=== PATIENT | female | born 1950 | race Caucasian/White ===

== ENCOUNTER → 2016-06-01 | Outpatient (CLI) | payer MEDICARE ==
[~2016-06-01] MED LIST: CALC500T42 PO; CHOL100025 CHEW; MULT1TAB84 PO; OMEG1CHW CHEW
--- NOTE | 2016-06-01 15:25 | RADRPT ---
EXAM DATE/TIME: 06/01/2016 15:07 [place] COMPARISON: No previous studies available for comparison. INDICATIONS : Evaluate for pneumothorax, pneumonia and communicable diseases. Pre-op Uterine surgery MEDICAL HISTORY : None. SURGICAL HISTORY : None. ENCOUNTER: Initial ACUITY: 1 day PAIN SCORE: 0/10 LOCATION: chest FINDINGS: PA and lateral views of the chest demonstrate the lungs to be symmetrically aerated without evidence of mass, infiltrate or effusion. The cardiomediastinal contours are unremarkable. Osseous structure s are intact. CONCLUSION: No acute disease. Jonathan Ignacio MD on June 01, 2016 at 15:23 Board Certified Radiologist. This report was verified electronically.
--- NOTE | 2016-06-02 22:27 | EKG ---
Date Performed: 06/01/2016 Time Performed: 14:53:04 PTAGE: 66 years EKG: Sinus rhythm NORMAL ECG NO PREVIOUS TRACING DOCTOR: Amos Armendariz Interpretating Date/Time 06/02/2016 22:26:50
== END ==
LOC: CPRE 14:28
PROVIDERS: ATTEND Obstetrics & Gynecology Gynecologic Oncology
DX: Z01.810 Encounter for preprocedural cardiovascular examination (principal); Z01.811 Encounter for preprocedural respiratory examination; Z01.812 Encounter for preprocedural laboratory examination; D06.9 Carcinoma in situ of cervix, unspecified
CPT/HCPCS: 71020; 93005

== ENCOUNTER → 2016-06-15 | Day surgery (SDC) | payer MEDICARE ==
[~2016-06-15] VITALS: Ht 160 cm; Wt 47.8 kg
[~2016-06-15] MED LIST changes: +*morphine SULFATE 8 MG/ML PERIprocedure ONLY ONE; +ESTROGENS CONJUGATED VAG CREA 15 APPL/30 GM TUBE ONE; +INSULIN HUMAN REGULAR 1,000 UNITS/10 ML VIAL SQ PRN; +KETOROLAC TROMETHAMINE 30 MG/ML (IVP) VIAL IV PUSH PRN; +KETOROLAC TROMETHAMINE 60 MG/2 ML (IM) VIAL IM ONE; +LACTATED RINGER'S 1000 ML INJ 1,000 ML IV ONE; +LACTATED RINGER'S 1000 ML IV SCH; +LIDOCAINE 1%/EPINEPHrine 1:100,000 SOLN 30 ML VIAL ONE; +METOPROLOL TARTRATE 25 MG TAB PO PRN; +MIDAZOLAM HCL 2 MG/2 ML VIAL ONE; +ONDANSETRON HCL 4 MG/2 ML VIAL IV PUSH ONE; +PROPOFOL 200 MG/20 ML AMP IV ONE; +SODIUM CHLORID 0.9% 500 ML IV SCH; +VASOPRESSIN INJ 20 UNITS/ML VIAL ONE; +ePHEDrine/NS 25 MG/5 ML SYR IV ONE; +oxyCODONE/ACETAMINOPHEN 5 MG/325 MG TAB PO PRN
[2016-06-15 11:46] VITALS: BP 134/80; PULSE 75; RESP 20; TEMP 98.1; O2SAT 97
[2016-06-15 15:55] VITALS: BP 145/84; PULSE 71; RESP 20; TEMP 96; O2SAT 99
--- NOTE | 2016-06-16 09:37 | MP ---
cc: AFTAB AGUILAR D.O., KELLY L. MD HERNANDEZNIRMALA MUÑOZ M.D. DATE OF SURGERY 06/15/2016 PREOPERATIVE DIAGNOSES 1. Atypical glandular cell Pap smear. 2. 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 3. Nondiagnostic endometrial biopsy. POSTOPERATIVE DIAGNOSES 1. Atypical glandular cell Pap smear. 2. 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 3. Nondiagnostic endometrial biopsy. PROCEDURE Examination under anesthesia, cervix conization, fractional dilation and curettage. SURGEON Sachi Dennis MD QUALITY REVIEWER [place] salon assistant. ANESTHESIA Laryngeal mask anesthesia. ESTIMATED BLOOD LOSS 20 cc. HISTORY A 66-year-old female who had an atypical glandular cell Pap smear. Colposcopy and biopsy showed high-grade dysplasia, squamous cell from the cervix, endocervical curettings. This showed also squamous cell carcinoma. Endometrial biopsy was nondiagnostic. She was counseled regarding the need to clarify further the origin and extent of the abnormality given the Pap smear suggesting atypical glandular cells but the biopsy suggesting squamous cell abnormalities. We recommended examination under anesthesia, conization of the cervix, fractional dilation and curettage. She is seen again in the preop holding area where these findings and recommendations are again reviewed. The procedure is discussed. Questions were answered. She expresses good understanding and wishes to move forward with the diagnostic surgical procedure. FINDINGS On exam under anesthesia there is no appreciably enlarged inguinal or femoral lymph nodes. External genitalia without mass or lesion. With traction the cervix prolapses down to the level of the introitus. There is a cystocele and rectocele with redundant vaginal mucosa overlying the cervix anteriorly and posteriorly. There is no overt fixation or parametrial thickening or nodularity. The uterine cavity sounds to 6 cm. On exam, after application of dilute acetic acid, there is some central acetowhite epithelial changes in the transformation zone. The periphery of the ectocervix grossly appears normal. There is no overt evidence to suggest invasive cancer on exam. PROCEDURE The patient was taken to the operating room, placed in dorsal lithotomy position after laryngeal mask anesthesia was administered, time-out was undertaken. The patient was identified by sight recognition and hospital ID bracelet and the proposed procedure was reviewed and confirmed. Exam under anesthesia was performed with findings as described above. She was prepped and draped in sterile fashion. Dilute acetic acid was applied. She was reexamined with findings as described above. Tenaculum was placed on the cervix to provide countertraction which brought the cervix down to the level of the introitus. Central acetowhite changes were noted. The axis of the cervix and uterus was determined with a uterine sound and cautious central conization was carried out with a scalpel to remove the area centrally that appeared abnormal to include a portion of the endocervical canal distress. This specimen was removed and labeled as cervix conization. Next, endocervical curetting was performed circumferentially with multiple passes, tissue labeled as endocervix with a mild to moderate amount of tissue obtained. Now the cervix was dilated with gradual gradually increasing dilators and curetting was performed of the endometrium circumferentially, all surfaces of the endometrium, multiple passes, tissue combined and labeled endometrial tissue with a scant amount of tissue obtained. The cone bed was rendered hemostatic with the stay sutures that had been placed using 0 Vicryl sutures at the 3 and 9 o'clock positions on the lateral cervix. Lidocaine epinephrine had been injected into the cervix and now the cone bed was rendered hemostatic with cautery followed by Monsel's solution. Preliminary and final counts were correct. There were no remaining foreign objects in the vagina. She was returned to dorsal supine position and was pending reversal of anesthesia when I left the operating room to precede her to the Post-Anesthesia Care Unit. MD MADDY Jackson/ELADIO /1:50 PM /9:23 AM
== END | disposition home or self-care (01) ==
LOC: HSDC 11:03
PROVIDERS: ATTEND Obstetrics & Gynecology Gynecologic Oncology
DX: D06.9 Carcinoma in situ of cervix, unspecified (principal)
CPT/HCPCS: 00940; 57520; 86850; 86900; 86901; 88305; 88307; J1885; J2250; J2270; J2405; J7120

== ENCOUNTER → 2016-08-03 | Outpatient (CLI) | payer MEDICARE ==
[~2016-08-03] MED LIST changes: -*morphine SULFATE 8 MG/ML PERIprocedure ONLY ONE; -ESTROGENS CONJUGATED VAG CREA 15 APPL/30 GM TUBE ONE; -INSULIN HUMAN REGULAR 1,000 UNITS/10 ML VIAL SQ PRN; -KETOROLAC TROMETHAMINE 30 MG/ML (IVP) VIAL IV PUSH PRN; -KETOROLAC TROMETHAMINE 60 MG/2 ML (IM) VIAL IM ONE; -LACTATED RINGER'S 1000 ML INJ 1,000 ML IV ONE; -LACTATED RINGER'S 1000 ML IV SCH; -LIDOCAINE 1%/EPINEPHrine 1:100,000 SOLN 30 ML VIAL ONE; -METOPROLOL TARTRATE 25 MG TAB PO PRN; -MIDAZOLAM HCL 2 MG/2 ML VIAL ONE; -ONDANSETRON HCL 4 MG/2 ML VIAL IV PUSH ONE; -PROPOFOL 200 MG/20 ML AMP IV ONE; -SODIUM CHLORID 0.9% 500 ML IV SCH; -VASOPRESSIN INJ 20 UNITS/ML VIAL ONE; -ePHEDrine/NS 25 MG/5 ML SYR IV ONE; -oxyCODONE/ACETAMINOPHEN 5 MG/325 MG TAB PO PRN
[2016-08-03 12:09] LABS: BASOPHIL % 0.5 % (0.0-2.0); EOSINOPHIL # 0.1 TH/MM3 (0-0.4); EOSINOPHIL % 1.2 % (0.0-4.0); HEMATOCRIT 37.9 % (35.0-46.0); HEMO FLAGS DIFF FINAL; LYMPH % 34.3 % (9.0-44.0); LYMPHOCYTE # 1.8 TH/MM3 (1.0-4.8); MEAN CELL VOLUME 95.5 FL (80.0-100.0); MEAN CORPUSCULAR HEMOGLOBIN 32.6 PG (27.0-34.0); MEAN CORPUSCULAR HGB CONC 34.2 % (32.0-36.0); MONO % 7.7 % (0.0-8.0); NEUT % 56.3 % (16.0-70.0); PLATELET COUNT 285 TH/MM3 (150-450); RED BLOOD COUNT 3.97 MIL/MM3 (4.00-5.30); RED CELL DISTRIBUTION WIDTH 12.7 % (11.6-17.2); WHITE BLOOD COUNT 5.3 TH/MM3 (4.0-11.0)
[2016-08-03 12:19] LABS: APTT (PATIENT) 24.8 SEC (24.3-30.1); PROTHROMBIN TIME - PATIENT 10.6 SEC (9.8-11.6)
[2016-08-03 12:45] LABS: ALKALINE PHOSPHATASE 93 U/L (45-117); ALT (GPT) 20 U/L (10-53); ANION GAP 6 MEQ/L (5-15); AST (GOT) 18 U/L (15-37); BICARBONATE 31.3 MEQ/L (21.0-32.0); BLOOD UREA NITROGEN 20 MG/DL (7-18); CHLORIDE 106 MEQ/L (98-107); GLOMERULAR FILTRATION RATE 68 ML/MIN (>89); GLUCOSE,FASTING 78 MG/DL (74-99); POTASSIUM 4.5 MEQ/L (3.5-5.1); SODIUM (NA) 143 MEQ/L (136-145); TOTAL BILIRUBIN ADULT 0.2 MG/DL (0.2-1.0)
== END ==
LOC: CPRE 11:11
PROVIDERS: ATTEND Obstetrics & Gynecology Gynecologic Oncology
DX: Z01.812 Encounter for preprocedural laboratory examination (principal); D06.9 Carcinoma in situ of cervix, unspecified
CPT/HCPCS: 36415; 80053; 85025; 85610; 85730

== ENCOUNTER → 2016-08-10 | Day surgery (SDC) | payer MEDICARE ==
[~2016-08-10] VITALS: Ht 160 cm; Wt 48.0 kg
[~2016-08-10] MED LIST changes: +*morphine SULFATE 8 MG/ML PERIprocedure ONLY ONE; +CHLORHEXIDINE GLUCONATE 2 % 1 PACK (2 CLOTHS) TOPICAL PRN; +DO NOT ADM ANY ANTICOAGULANT DRUGS PRN; +FAMOTIDINE 20 MG/2 ML VIAL ONE; +INSULIN HUMAN REGULAR 1,000 UNITS/10 ML VIAL SQ PRN; +KETOROLAC TROMETHAMINE 30 MG/ML (IVP) VIAL ONE; +LACTATED RINGER'S 1000 ML IV PRN; +LIDOCAINE 1%/EPINEPHrine 1:100,000 SOLN 50 ML VIAL ONE; +METOPROLOL TARTRATE 25 MG TAB PO PRN; +MIDAZOLAM HCL 2 MG/2 ML VIAL ONE; +ONDANSETRON HCL 4 MG/2 ML VIAL IV PUSH ONE; +POVIDONE IODINE 5% (ANTISEPSIS KIT) 4 APPLICATIONS EACH NARE PRN; +PROPOFOL 200 MG/20 ML AMP IV ONE; +SODIUM CHLORID 0.9% 500 ML IV PRN; +ceFAZolin INJ 1,000 MG VIAL ONE
[2016-08-10 12:58] VITALS: BP 147/75; PULSE 71; RESP 16; TEMP 97.7; O2SAT 97
[2016-08-10 17:55] VITALS: BP 149/73; PULSE 63; RESP 20; TEMP 97.5; O2SAT 98
--- NOTE | 2016-08-17 11:42 | MP ---
cc: AFTAB AGUILAR D.O., KELLY L. MD DASILVA, CHRISTINE C. M.D. 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 PROCEDURE Exam under anesthesia, cervical conization, endocervical curetting. SURGEON Sachi Dennis MD THRESHING OPERATOR [place] [employer] assistant department head. ANESTHESIA Laryngeal mask anesthesia. ESTIMATED BLOOD LOSS Less than 20 cc. HISTORY A 66-year-old female with a high-grade abnormal Pap smear and biopsies which led to cervix conization. The conization showed microinvasive squamous cell carcinoma of the cervix. Depth of invasion was estimated at 3.5 mm. However, the apex of the conization was positive and endocervical curetting proximal to the cone showed high-grade atypical cells suspicious for invasion. Taking into account all factors, given the fact that this measurement is close to the cut off between what is generally recommended as standard hysterectomy versus a more radical procedure or radiation, taking into account the morbidities of such, her age of [age] years old, her preference and other factors, she has been counseled extensively. She was seen again in the preop holding area, agrees to move forward with surgery. We have recommended a repeat conization and make a central high cone concentrating on the endocervical canal, trying to removed tissue above the apex of the previous cone to determine the presence or absence of persistent disease and the magnitude of that disease if persistent so that ultimate treatment recommendations can be made. She expressed good understanding and presents now for that endeavor. FINDINGS On exam there is no appreciably enlarged inguinal lymph nodes. External genitalia without mass or lesion. She has healed well from prior conization but the cervix is flush with the vaginal apex and she has a cystocele and a rectocele such that the anatomy is somewhat distorted. The endocervical canal is somewhat stenosed. There is no grossly visible or palpable tumor. The uterus and cervix are mobile. The uterus is not appreciably enlarged. There is no parametrial thickening or nodularity, no overt adnexal mass. PROCEDURE The patient was taken to the operating room, placed in dorsal lithotomy position. After laryngeal mask anesthesia was administered, time-out was undertaken. The patient was identified by sight recognition and hospital ID bracelet and the proposed procedure was reviewed and confirmed. Exam under anesthesia was performed with findings as described above. She was prepped and draped in sterile fashion with in-and-out catheterization of the bladder. With careful palpation bimanual exam, the outline of the cervix was palpated. The anterior cervix was grasped with a tenaculum, held on countertraction and the endocervical canal was identified using a lacrimal probe. Dilating the endocervical canal with a lacrimal probe and outlining the axis of the endocervical canal, this was used to help guide conization. 0 Vicryl sutures were placed at the 3, 8 and 9 o'clock position on the lateral cervix, lidocaine/epinephrine injected circumferentially. Scalpel 15 blade was used to outline a narrow high cone following around the central lacrimal probe, angling in centrally to remove a high, narrow, central cone and this specimen was removed and labeled as cervix conization. Endocervical curetting was performed circumferentially in the endocervical canal above the apex of the cone this tissue was collected as endocervical curettings. The cone bed was cauterized with Bovie cautery and then topical Monsel's solution was applied. Sites were hemostatic. There were no remaining foreign objects in the vagina. Preliminary and final counts were correct. She was returned to dorsal supine position and was pending reversal of anesthesia when I left the operating room to precede her to the Post-Anesthesia Care Unit. MD MADDY Jackson/ELADIO /7:37 AM /11:31 AM
== END | disposition home or self-care (01) ==
LOC: HSDC 11:38
PROVIDERS: ATTEND Obstetrics & Gynecology Gynecologic Oncology
DX: C53.0 Malignant neoplasm of endocervix (principal)
CPT/HCPCS: 00940; 57520; 86850; 86900; 86901; 88305; 88307; J0690; J1885; J2250; J2270; J2405; J3010; J7120

== ENCOUNTER → 2016-11-08 | Outpatient (CLI) | payer MEDICARE ==
[~2016-11-08] MED LIST changes: -*morphine SULFATE 8 MG/ML PERIprocedure ONLY ONE; -CHLORHEXIDINE GLUCONATE 2 % 1 PACK (2 CLOTHS) TOPICAL PRN; -DO NOT ADM ANY ANTICOAGULANT DRUGS PRN; -FAMOTIDINE 20 MG/2 ML VIAL ONE; -INSULIN HUMAN REGULAR 1,000 UNITS/10 ML VIAL SQ PRN; -KETOROLAC TROMETHAMINE 30 MG/ML (IVP) VIAL ONE; -LACTATED RINGER'S 1000 ML IV PRN; -LIDOCAINE 1%/EPINEPHrine 1:100,000 SOLN 50 ML VIAL ONE; -METOPROLOL TARTRATE 25 MG TAB PO PRN; -MIDAZOLAM HCL 2 MG/2 ML VIAL ONE; -ONDANSETRON HCL 4 MG/2 ML VIAL IV PUSH ONE; +OXYC1TAB63 PO; -POVIDONE IODINE 5% (ANTISEPSIS KIT) 4 APPLICATIONS EACH NARE PRN; -PROPOFOL 200 MG/20 ML AMP IV ONE; -SODIUM CHLORID 0.9% 500 ML IV PRN; -ceFAZolin INJ 1,000 MG VIAL ONE
[2016-11-08 10:34] LABS: AUTOMATED NEUTROPHIL # 2.8 TH/MM3 (1.8-7.7); BASOPHIL % 0.9 % (0.0-2.0); EOSINOPHIL # 0.2 TH/MM3 (0-0.4); EOSINOPHIL % 3.1 % (0.0-4.0); HEMATOCRIT 39.5 % (35.0-46.0); HEMO FLAGS DIFF FINAL; LYMPH % 32.5 % (9.0-44.0); LYMPHOCYTE # 1.6 TH/MM3 (1.0-4.8); MEAN CELL VOLUME 95.6 FL (80.0-100.0); MEAN CORPUSCULAR HEMOGLOBIN 33.1 PG (27.0-34.0); MEAN CORPUSCULAR HGB CONC 34.6 % (32.0-36.0); MONO % 7.3 % (0.0-8.0); NEUT % 56.2 % (16.0-70.0); PLATELET COUNT 273 TH/MM3 (150-450); RED BLOOD COUNT 4.13 MIL/MM3 (4.00-5.30); RED CELL DISTRIBUTION WIDTH 12.3 % (11.6-17.2); WHITE BLOOD COUNT 4.9 TH/MM3 (4.0-11.0)
[2016-11-08 10:39] LABS: APTT (PATIENT) 26.4 SEC (24.3-30.1); INTERNATIONAL NORMALIZED RATIO 0.9 RATIO; PROTHROMBIN TIME - PATIENT 10.2 SEC (9.8-11.6)
[2016-11-08 10:57] LABS: ANION GAP 8 MEQ/L (5-15); AST (GOT) 18 U/L (15-37); BICARBONATE 27.8 MEQ/L (21.0-32.0); BLOOD UREA NITROGEN 11 MG/DL (7-18); CHLORIDE 107 MEQ/L (98-107); GLOMERULAR FILTRATION RATE 94 ML/MIN (>89); SODIUM (NA) 143 MEQ/L (136-145)
[2016-11-08 11:00] LABS: ALKALINE PHOSPHATASE 93 U/L (45-117); ALT (GPT) 18 U/L (10-53); TOTAL BILIRUBIN ADULT 0.3 MG/DL (0.2-1.0)
== END ==
LOC: CPRE 09:26
PROVIDERS: ATTEND Obstetrics & Gynecology Gynecologic Oncology
DX: Z01.812 Encounter for preprocedural laboratory examination (principal); C53.9 Malignant neoplasm of cervix uteri, unspecified
CPT/HCPCS: 80053; 85025; 85610; 85730

== ENCOUNTER 2016-11-22 08:23 | Observation (INO) | payer MEDICARE ==
[~2016-11-22] VITALS: Ht 160 cm; Wt 49.4 kg
[2016-11-22 09:01] VITALS: BP 113/63; PULSE 70; RESP 20; TEMP 97.9; O2SAT 98
[2016-11-22] MEDS ORDERED: INSULIN HUMAN REGULAR 1,000 UNITS/10 ML VIAL SQ PRN (09:30)
[2016-11-22] MEDS ORDERED: METOPROLOL TARTRATE 25 MG TAB PO PRN (09:30)
[2016-11-22] MEDS ORDERED: ceFAZolin 1,000 MG/NS 100 ML IV SCH ×2 (09:30)
[2016-11-22] MEDS ORDERED: LACTATED RINGER'S 1000 ML IV PRN (09:30)
[2016-11-22] MEDS ORDERED: POVIDONE IODINE 5% (ANTISEPSIS KIT) 4 APPLICATIONS EACH NARE PRN (09:30)
[2016-11-22] MEDS ORDERED: SODIUM CHLORID 0.9% 500 ML IV PRN (09:30)
[2016-11-22] MEDS ORDERED: CHLORHEXIDINE GLUCONATE 2 % 1 PACK (2 CLOTHS) TOPICAL PRN (09:30)
[2016-11-22] MEDS ORDERED: HEPARIN SODIUM - SQ 10,000 UNITS/ML VIAL SQ SCH (09:45)
[2016-11-22] MEDS ORDERED: PROPOFOL 200 MG/20 ML AMP IV ONE (12:00)
[2016-11-22] MEDS ORDERED: PHENYLEPH/NS 1000 MCG/10 ML SYR IV ONE (12:00)
[2016-11-22] MEDS ORDERED: LACTATED RINGER'S 1000 ML INJ 1,000 ML IV ONE (12:00)
[2016-11-22] MEDS ORDERED: NORMOSOL R INJ 1,000 ML IV ONE (12:00)
[2016-11-22] MEDS ORDERED: ONDANSETRON HCL 4 MG/2 ML VIAL IV PUSH ONE (12:00)
[2016-11-22] MEDS ORDERED: ePHEDrine/NS 25 MG/5 ML SYR IV ONE (12:00)
[2016-11-22] MEDS ORDERED: ONDANSETRON HCL 4 MG/2 ML VIAL ONE (13:12)
[2016-11-22] MEDS ORDERED: FAMOTIDINE 20 MG/2 ML VIAL ONE (13:12)
[2016-11-22] MEDS ORDERED: ACETAMINOPHEN 1000 MG/100 ML VIAL IV ONE (14:34)
[2016-11-22] MEDS ORDERED: MIDAZOLAM HCL 2 MG/2 ML VIAL ONE (14:58)
[2016-11-22] MEDS ORDERED: HYDROmorphone HCL PF 2 MG/ML VIAL ONE (15:02)
[2016-11-22] MEDS ORDERED: fentaNYL CITRATE 250 MCG/5 ML AMP ONE (15:02)
[2016-11-22] MEDS ORDERED: LIDOCAINE 1.5%/EPINEPHrine 1:200,000 PF SOLN 30 ML AMP INFIL ONE (16:01)
[2016-11-22] MEDS ORDERED: ceFAZolin INJ 1,000 MG VIAL IV ONE (16:05)
[2016-11-22] MEDS ORDERED: METHYLENE BLUE 10 MG/ML VIAL OTHER ONE (17:02)
[2016-11-22] MEDS ORDERED: SUGAMMADEX SODIUM 200 MG/2 ML VIAL IV PUSH ONE ×2 (17:42)
[2016-11-22] MEDS ORDERED: ONDANSETRON HCL 4 MG/2 ML VIAL IVP PRN (18:00)
[2016-11-22] MEDS ORDERED: SODIUM CHLORIDE 0.9% FLUSH 10 ML FLUSH IV FLUSH PRN (18:00)
[2016-11-22] MEDS ORDERED: diphenhydrAMINE HCL 25 MG CAP PO PRN (18:00)
[2016-11-22] MEDS ORDERED: oxyCODONE/ACETAMINOPHEN 5 MG/325 MG TAB PO PRN ×2 (18:00)
[2016-11-22] MEDS ORDERED: LORazepam 0.5 MG TAB PO PRN (18:00)
[2016-11-22 20:00] VITALS: BP 120/66; PULSE 91; RESP 16; TEMP 95.8; O2SAT 100
[2016-11-22] MEDS: KETOROLAC TROMETHAMINE 30 MG/ML (IVP) VIAL IVP SCH (21:59)
[2016-11-22] MEDS: SODIUM CHLORIDE 0.9% FLUSH 10 ML FLUSH IV FLUSH SCH (22:00)
[2016-11-22] MEDS: D5-1/2 NS + KCL 20 MEQ INJ 1,000 ML IV SCH (22:00)
[2016-11-23] VITALS: BP 91/53; PULSE 98; RESP 16; TEMP 97.7; O2SAT 100
[2016-11-23] MEDS: KETOROLAC TROMETHAMINE 30 MG/ML (IVP) VIAL IVP SCH ×2 (02:15→11:06)
[2016-11-23 04:00] VITALS: BP 103/58; PULSE 104; RESP 16; TEMP 98.5; O2SAT 98
[2016-11-23] MEDS: D5-1/2 NS + KCL 20 MEQ INJ 1,000 ML IV SCH (04:49)
[2016-11-23 07:39] LABS: AUTOMATED NEUTROPHIL # 5.9 TH/MM3 (1.8-7.7); BASOPHIL % 0.3 % (0.0-2.0); EOSINOPHIL % 0.1 % (0.0-4.0); HEMATOCRIT 34.1 % (35.0-46.0); HEMO FLAGS DIFF FINAL; LYMPH % 14.9 % (9.0-44.0); LYMPHOCYTE # 1.1 TH/MM3 (1.0-4.8); MEAN CELL VOLUME 94.8 FL (80.0-100.0); MEAN CORPUSCULAR HGB CONC 34.8 % (32.0-36.0); MONO % 6.1 % (0.0-8.0); NEUT % 78.6 % (16.0-70.0); PLATELET COUNT 218 TH/MM3 (150-450); RED CELL DISTRIBUTION WIDTH 12.4 % (11.6-17.2); WHITE BLOOD COUNT 7.4 TH/MM3 (4.0-11.0)
[2016-11-23] MEDS ORDERED: OXYC1TAB63 PO (07:44)
[2016-11-23 08:00] VITALS: BP 112/56; PULSE 85; RESP 16; TEMP 97.6; O2SAT 96
[2016-11-23 08:09] LABS: BICARBONATE 25.6 MEQ/L (21.0-32.0); POTASSIUM 3.6 MEQ/L (3.5-5.1)
[2016-11-23 08:27] LABS: CALCIUM-PROTEIN CORRECTED 8.2 MG/DL (8.5-10.1)
[2016-11-23] MEDS: SODIUM CHLORIDE 0.9% FLUSH 10 ML FLUSH IV FLUSH SCH (11:07)
--- NOTE | 2016-11-23 21:09 | MP ---
cc: KAITY DENNIS MD, CHRISTINE C. M.D. 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 PROCEDURE Robotic-assisted laparoscopic hysterectomy, bilateral salpingo-oophorectomy. SURGEON David Dennis MD TRIMMER PRESS CLIPPINGS [place] first line production supervisor ANESTHESIA General endotracheal ESTIMATED BLOOD LOSS 100 mL IV FLUIDS 2500 mL URINE OUTPUT 500 mL HISTORY A 66-year-old female found to have a microinvasive squamous cell carcinoma of the cervix. Greatest depth of invasion estimated to be 3.5 mm. No overt lymphovascular space invasion. She has undergone two prior conizations. She has been counseled in our office and is seen again in preop holding area where she is again counseled. She understands that this is right at the borderline for a simple hysterectomy versus radical hysterectomy, given the depth of invasion is just over 3 mm. She understands and is aware, but was concerned and apprehensive about potential morbidity of radical hysterectomy including bladder dysfunction, self-catheterization and understands the pertinent aspects of our discussion including pros, cons, risks and benefits and agrees for straight forward hysterectomy, but declines radical hysterectomy and presents now for that endeavor. FINDINGS There is no overt evidence of persistent disease. The cervix is markedly attenuated given two prior conizations and the cervix itself is flush with the vaginal apex and difficult to define on visualization. In fact, unable to clearly identify the endocervical canal until we were in laparoscopically and used laparoscopic guidance to guide small dilator into the cervix and into the uterus and then, under direct laparoscopic visualization, progressive dilation to allow placement of the uterine manipulator. The uterine cavity sounded to only 6.5 cm. Tubes and ovaries grossly appeared normal. There is no pelvic or para-aortic adenopathy. No intraperitoneal implants. PROCEDURE IN DETAIL She was taken to the operating room, placed in dorsal lithotomy position after general endotracheal anesthesia was administered. Time-out was undertaken. She was identified by sight recognition and hospital ID bracelet and the proposed procedure was reviewed and confirmed. She was carefully positioned in padded Ayaan stirrups. Her arms padded and secured to the sides. She was further secured to the operating table with egg crate padding and tape in across chest over the shoulder fashion. All sites noted to be properly aligned with no malalignments or pressure points. She was prepped, draped sterile fashion, placed in high lithotomy position. Exam was with findings as described above. Unable to identify the cervical os. Parnell catheter was placed. She was returned to low lithotomy position. Change of sterile gloves was undertaken. We confirmed that her orogastric tube was in the stomach on suction. With manual elevation of the abdominal wall, under direct laparoscopic visualization 5 mm cannula placed in the left upper quadrant. Atraumatic entry was confirmed as carbon dioxide gas was insufflated. A 12 mm cannula placed in the midline above the umbilicus, 8 mm cannulas was placed in the right upper quadrant, left lateral quadrant and the original five exchanged for an 8 millimeter cannula. She was placed in steep Trendelenburg position. Small bowel was folded back on its mesenteric root. Three Ray-Marvin sponges were placed around the root of the small bowel mesentery. I then repeated pelvic exam, used narrow dilator under laparoscopic guidance, was able to identify the endocervical canal, able to dilate that satisfactorily with progressive dilators and then place a standard V-Care manipulator which was secured in the usual fashion. A change of sterile gloves was undertaken. We now brought the robot into the operative field, docked in the usual fashion. Monopolar scissors, fenestrated bipolar forceps and Prograsp manipulators were placed in arms #1, 2 and 3 respectively and I took my place at the surgeon's console. Right round ligament isolated, cauterized, transected. The anterior and posterior leafs of the broad ligament were opened. Right ureter was identified. The right infundibulopelvic ligament was isolated to the level of the pelvic brim where it was cauterized and transected. Posterior peritoneum opened along the right side of uterus and cervix and the right vesicouterine peritoneum was dissected off the lower uterine segment and cervix. Right uterine vessels were skeletonized, cauterized and transected as were the cardinal, paracervical and uterosacral ligaments thereby freeing the attachments along the right side of the uterus and cervix. Attention was directed toward the left side where the left round ligament was isolated, cauterized, transected. The anterior and posterior leafs of the broad ligament were opened. Left ureter was identified. Left infundibulopelvic ligament was isolated. The intervening peritoneum was opened. The infundibulopelvic ligament was isolated to the level of the pelvic brim where it was cauterized and transected. Posterior peritoneum opened along the uterus and cervix and the left vesicouterine peritoneum dissected off the lower uterine segment. The cervix, left uterine vessels were skeletonized, cauterized and transected as were the cardinal, paracervical and uterosacral ligaments. Colpotomy was performed circumferentially including the cervix which included a narrow rim of the upper vagina as well and specimen was withdrawn transvaginally which included uterus, cervix, tubes and ovaries and a pneumo-occluder balloon was placed in the vagina to maintain pneumoperitoneum. Instruments 1 and 3 exchanged for needle drivers as 0 Vicryl suture was introduced. The vaginal cuff was closed with interrupted [id number] 0 Vicryl suture, reinforced the attenuated tissue starting at the angles including the edge of the posterior peritoneum and uterosacral ligaments. The vaginal cuff was closed with interrupted [id number] sutures incorporating full-thickness vaginal wall and posterior peritoneum. Sutures were tied via instrument tie. The needle was cut and removed. Pelvis was thoroughly irrigated. The integrity of the bladder was confirmed by filling the bladder with saline dyed with methylene blue. The bladder distended nicely under pressure. There were no thin areas in the bladder. No blue areas visible and certainly no extravasation of dye. There was a good margin between the vaginal cuff suture line and the bladder. Good peristalsis of ureters bilaterally and the bladder was drained. It was felt that all reasonable surgical objectives had been completed. The robotic instruments were removed. The robotic system was disengaged from the operative field. I reentered the bedside under sterile condition. Each of the three Ray-Marvin sponges were now removed through the 12-mm cannula. Each were inspected and noted to be removed in their entirety. Inspection of the peritoneal cavity revealed no remaining foreign objects and preliminary counts were correct. Sites were hemostatic. The 12-mm fascia was closed with interrupted 0 Vicryl sutures using a needle pass apparatus. They were tied securely which rendered the fascia completely airtight and hemostatic. The remaining cannulas were withdrawn. Carbon dioxide gas was removed from the peritoneal cavity. 3-0 Vicryl subcutaneous, 3-0 Vicryl subcuticular and Steri-Strips were used to close these incisions. She was returned to dorsal lithotomy position. Pelvic exam confirmed that the vaginal cuff was well supported, hemostatic except for a little bit of superficial mucosal irritation and some hemostatic Miranda had been placed in the peritoneal cavity and the remaining Miranda was placed in the vaginal apex. Complete hemostasis and no remaining foreign objects in the vagina. Final counts were correct. She was returned to dorsal supine position and was pending reversal of anesthesia when I left the operating room to precede her to the Post Anesthesia Care Unit. MD MADDY Jackson/ /7:46 AM /8:40 PM
--- NOTE | 2016-11-27 20:36 | MD ---
cc: KAITY THOMAS MD,NIRMALA CASTILLO M.D. ADMISSION DATE: 11/22/2016 DISCHARGE DATE: 11/23/2016 PROCEDURE 11/22/2016 robotic-assisted laparoscopic hysterectomy, bilateral salpingo-oophorectomy. 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 HOSPITAL COURSE She did well in the early postoperative period. She is tolerating oral intake. Parnell catheter removed pending voiding. Ins and outs 4510/1650. LABORATORY DATA H&H 11.9 and 34.1, white count 7.4, platelets 218. Electrolytes pending. PHYSICAL EXAMINATION VITAL SIGNS: Afebrile, pulse 91-104, respirations 16, blood pressure 91-126 over 53-67, O2 saturations greater than or equal to 98% LUNGS: Clear except for mild basilar rales. CARDIOVASCULAR: Regular rate and rhythm. ABDOMEN: Soft. Incisions clean and dry. ARCHITECTURAL COATING FINISHER: No bleeding. Extremities: Nontender. ASSESSMENT Postop day #1 FINDINGS AT SURGERY Steps taken were reviewed, activities, restrictions discussed. Questions were answered. She expressed good understanding. PLAN Anticipate she will meet criteria for discharge to home today. She will have a prescription for Percocet for pain. She does not take any regular prescription medications. Our office number is again made available should she have any questions or problems and she is to contact our office to schedule follow up in 2 weeks. MD MADDY Jackson/MONICO /8:01 AM /8:29 PM
== END 2016-11-23 11:38 | disposition home or self-care (01) ==
LOC: HSDC 08:23 → HSDI 17:53 → HOCA 19:03
PROVIDERS: ADMIT Obstetrics & Gynecology Gynecologic Oncology; ATTEND Obstetrics & Gynecology Gynecologic Oncology
DX: C53.9 Malignant neoplasm of cervix uteri, unspecified (principal); N80.0 Endometriosis of uterus; N84.0 Polyp of corpus uteri; N83.8 Other noninflammatory disorders of ovary, fallopian tube and broad ligament
CPT/HCPCS: 00840; 58552; 80048; 84155; 85025; 86850; 86900; 86901; 88309; 94150; 96365; 96366; 96375; G0378; J0131; J0690; J1170; J1644; J1885; J2250; J2370; J2405; J3010; J3480; J7120; 88307